=== PATIENT | male | born 1950 | race Caucasian/White ===

== ENCOUNTER → 2022-08-02 07:44 | Outpatient (CLI) | payer MEDICARE, OTHER, SELFPAY ==
--- NOTE | 2022-08-02 07:55 | US_ITS ---
FINAL REPORT CLINICAL HISTORY: Abdominal aortic aneurysm screening FINDINGS: Limited sonographic images were obtained of the abdomen to evaluate the abdominal aorta and iliac arteries. The abdominal aorta measures up to 2.3 cm in greatest dimension. The iliac arteries are within normal limits. IMPRESSION: No evidence of abdominal aortic aneurysm. Reviewed, Interpreted and Dictated by Kole Green III, MD Transcribed by Sujatha Mathews Authenticated and [facility]
== END ==
PROVIDERS: PCP Nurse Practitioner Family; Visit Provider Nurse Practitioner Family
DX: Z13.6 Encounter for screening for cardiovascular disorders (principal)
CPT/HCPCS: 76705

== ENCOUNTER 2024-08-29 09:38 | Day surgery (SDC) | payer MEDICARE, OTHER, SELFPAY ==
[2024-08-29] VITALS (7 sets, daily range): BP systolic 85–154; BP diastolic 42–74; PULSE 66–82; RESP 16–18; TEMP 36.4–36.7; O2SAT 95–100
[2024-08-29] MEDS: LACTATED RINGERS 1000ML 1,000 ML 25 ML IV (10:14)
--- NOTE | 2024-08-29 10:21 | P.PNANES_ITS ---
[facility] Disclaimer: The information contained in this section may have been updated after the patient was seen, as this information can be updated by other users. Medical History History of prostate cancer Surgical History History of colonoscopy with polypectomy Family History Other No significant family history Social History Smoking Status: Never smoker alcohol intake: never substance use type: denies use current occupational status: retired household members: spouse housing: house caffeine: No [facility] Anesthesia Checklist Patient Identification Patient Identification: Arm Band and Verbal (Name & ) Structural Data Admitted From: Home Planned Operative Procedure/s: Colonoscopy Consent for Planned Operative Procedure(s) Verified: Yes Verified Documents: Surgical Consent NPO Status Verified Time NPO: 00:00 Additional verifications Anesthesia Reactions: No Airway Assessment Mallampati Score:: Class III C-Spine Mobility Assessed: Yes TMJ Mobility Assessed: Yes Dentition: Poor Dentition Neurological Assessment Level of Consciousness: Awake Hx Seizures: No Numbness or tingling in extremities: No Anesthesia Plan Anesthesia Risk discussed: Yes Anesthesia Plan: Verified ASA Class: II Anesthesia Type: MAC
--- NOTE | 2024-08-29 11:08 | P.HP_ITS ---
History of Present Illness *Admission Date: 08/29/24 *Reason for visit:: Surveillance colonoscopy secondary to personal history of adenomatous polyp *History of present illness: Mr. Bruno is a 73-year-old gentleman who is here for 5-year surveillance colonoscopy secondary to personal history of adenomatous polyps. The patient has had several colonoscopies (December 2003 (tubular adenomas x 2) removed, May 2008 (tubular adenoma x 1 removed), August 2014 (tubular adenomas x 2) removed and August 2019 (tubular adenomas x 2) removed.. The examination is deemed medically necessary for surveillance. The patient has been seen, interviewed and examined prior to the procedure by both myself and the anesthesia provider. [facility] Disclaimer: The information contained in this section may have been updated after the patient was seen, as this information can be updated by other users. Medical History History of prostate cancer Surgical History History of colonoscopy with polypectomy Family History Other No significant family history Social History (Updated 08/29/24 @ 10:21 by Bao Aj CRNA) Smoking Status: Never smoker alcohol intake: never substance use type: denies use current occupational status: retired Travel in the last 8 weeks: None household members: spouse housing: house caffeine: No Other Medical History Have you received the Flu Vaccine for this season: Yes Have you received the Pneumonia Vaccine: Yes Review of Systems Review of Systems Review of systems (narrative): Negative *Cardiovascular Comments: Negative *Gastrointestinal Comments: Negative *Genitourinary Comments: Negative *Musculoskeletal Comments: Negative *Neurologic Comments: Negative Meds Home Medications and Allergies Home Medications ?Medication ?Instructions ?Recorded ?Confirmed ?Type lisinopril 20 mg tablet 20 mg PO DAILY bp 08/05/19 08/29/24 History rosuvastatin 20 mg tablet 20 mg PO DAILY Cholesterol 08/05/19 08/29/24 History New Prescriptions to Start Prescriptions: Allergies Allergy/AdvReac Type Severity Reaction Status Date / Time No Known Allergies Allergy Verified 08/29/24 10:08 Exam Data for Last 24 hours Vital signs and Labs for Last 24 Hours: Temp Pulse Resp BP Pulse Ox O2 Del Method O2 Flow Rate 98.1 F 82 18 154/74 H 98 Nasal Cannula 5 08/29/24 10:09 08/29/24 10:09 08/29/24 10:09 08/29/24 10:09 08/29/24 10:09 08/29/24 11:04 08/29/24 11:04 *Routine HEENT Exam Head: Present normocephalic Eye: Present EOMI and PERRL ENT: Present mucous membranes moist *Routine Neck Exam Neck: Present supple *Routine Respiratory Exam Respiratory: Present CTA bilaterally *Routine Cardiovascular Exam Cardiovascular: Present RRR *Routine Abdominal Exam Abdominal: Present soft and normoactive bowel sounds; Absent tenderness *Routine Rectal Exam Rectal:: deferred *Routine Genitalia Exam Genitalia:: deferred *Routine Extremities Exam Extremities: Absent cyanosis, clubbing or edema *Routine Skin Exam Skin: Present warm; Absent rash *Routine Neurological Exam Neurological: Present alert and oriented X3 Assessment and Plan *Assessment and plan (1) Personal history of adenomatous and serrated colon polyps: Status: Acute Category: Medical Code(s): Z86.0101 - Personal history of adenomatous and serrated colon polyps Plan A/P: 1. Personal history of adenomatous colon polyps is the preprocedural diagnosis. The patient will be anesthetized/sedated using MAC sedation. The patient has been seen and examined. Cardiac and lung assessment prior to the examination is stable. Proceed with planned colonoscopy
--- NOTE | 2024-08-29 11:11 | P.PCN_ITS ---
[facility] Procedure Note Date: 08/29/24 Time: 11:27 Procedure Note:: Colonoscopy Procedure Report: Colonoscopy with cold snare polypectomy Endoscopist: Lico Eldridge II, MD Referring physician: EVETTE Guzman Date of Procedure: August 29, 2024 Equipment: Olympus 190 variable stiffness pediatric colonoscope Sedation: MAC sedation Indication: Mr. Bruno is a 73-year-old gentleman who is here for follow-up surveillance colonoscopy secondary to a personal history of adenomatous polyps. He has had several colonoscopies at which time adenomas were removed (December 2003 (tubular adenomas x 2 removed), May 2008 (tubular adenoma x 1 removed), August 2014 (tubular adenomas x 2 removed) and August 2019 (hyperplastic polyps x 2 removed). The patient does state that his paternal grandfather had colon cancer. He reports no abdominal pain, weight loss, change in his bowel habits or rectal bleeding. Procedure: Prior to the procedure, a history and physical exam was performed, and patient's medications and allergies were reviewed. The risks, benefits and alternatives of the sedation and procedure were discussed with the patient. All questions were answered and informed consent was obtained. The patient was brought to the procedure room. Patient identification and proposed procedure were verified by the physician and the nurse. The patient was placed in a left lateral decubitus position and the scope was passed under direct vision. Throughout the procedure, the patient's blood pressure, pulse, and oxygen saturations were monitored continuously. The colonoscopy was accomplished without difficulty. The patient tolerated the procedure well. Findings: On digital rectal examination there was normal rectal tone. There were no external hemorrhoids. There was no palpable prostate. The colonoscope was introduced through the anal canal to the rectum and advanced to the cecum. The ileocecal valve and appendiceal orifice were identified. The scope was advanced a short distance into the ileum which appeared grossly normal. The scope was then withdrawn into the colon. There was a single 7 mm polyp in the ascending colon removed via cold snare polypectomy. The remaining cecum, ascending and transverse colon and mucosa were grossly normal. There were scattered diverticuli throughout the descending and sigmoid colon (LEFT colon). The rectum itself was normal. Upon retroflexion within the rectum there were grade 2 internal hemorrhoids. The preparation was excellent throughout with [place] Preparation Score of 9. The cecal time was 12 minutes. Impression: 1. 7 mm ascending colon polyp 2. Left-sided diverticulosis 3. Grade 2 internal hemorrhoids Plan: I will follow-up the polyp histology and recommend repeat surveillance colonoscopy again in 5 to 7 years. I would encourage continued psyllium fiber supplementation on a maintenance basis.
== END 2024-08-29 12:12 | disposition home or self-care (01) ==
PROVIDERS: PCP Nurse Practitioner Family; Visit Provider Internal Medicine Gastroenterology
PROC: (CPT 45385; principal; 2024-08-29 11:30)
DX: Z86.0101 Personal history of adenomatous and serrated colon polyps (principal); Z80.0 Family history of malignant neoplasm of digestive organs; K63.5 Polyp of colon; K57.30 Diverticulosis of large intestine without perforation or abscess without bleeding; K64.1 Second degree hemorrhoids
CPT/HCPCS: 45385; 88305; J7120